=== PATIENT | male | born 1990 | race Caucasian/White ===

== ENCOUNTER 2017-11-07 12:25 | Emergency (ER) | payer MEDICAID ==
[2017-11-07] MEDS ORDERED: SODIUM CHLORIDE 0.9% 2,000 ML IV STA (12:42)
[2017-11-07] MEDS ORDERED: PANTOPRAZOLE 40 MG/10 ML VIAL IVP STA (12:42)
[2017-11-07] MEDS ORDERED: METOCLOPRAMIDE 5 MG/ML 2 ML VIAL IVP STA (12:42)
[2017-11-07] MEDS ORDERED: HYDROmorphone 1 MG/ML 1 ML SYRINGE IVP STA (12:43)
--- NOTE | 2017-11-07 12:47 | ED ---
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 No blood in the vomit. Temp 100.1.epigastric pain only - Related Data Home Medications Medication Instructions Recorded Confirmed Dextroamphetamine/Amphetamine 20 mg PO BID 11/07/17 11/07/17 [Adderall] Ondansetron [Zofran ODT] 4 mg PO ONCE PRN 11/07/17 11/07/17 Previous Rx's Medication Instructions Recorded Ciprofloxacin HCl [Cipro] 500 mg PO Q12HR #8 tablet 11/07/17 Ondansetron Odt [Zofran Odt] 4 mg PO Q8HR PRN #10 tab 11/07/17 Allergies Allergy/AdvReac Type Severity Reaction Status Date / Time No Known Allergies Allergy Verified 11/07/17 13:11 Review of Systems ROS Statement: Those systems with pertinent positive or pertinent negative responses have been documented in the HPI. review of systems. The patient felt well for several days vomiting for the past 6 hours. Temp 100.1. Epigastric discomfort. All systems are reviewed. Past medical problems seasonal asthma. No surgeries. Family history; Breast and brain cancer. Patient denies ALLERGIES denies smoking, denies alcohol use. ROS Other: All systems not noted in ROS Statement are negative. Past Medical History Past Medical History: No Reported History History of Any Multi-Drug Resistant Organisms: None Reported Past Surgical History: No Surgical Hx Reported Past Psychological History: No Psychological Hx Reported Smoking Status: Never smoker Past Alcohol Use History: Occasional Past Drug Use History: None Reported General Exam - General Exam Comments Initial Comments: General: The patient is awake and alert, mild to moderate distress because of epigastric discomfort and vomiting. Vital signs show temperature 100.1 pulse 133 respiratory rate 22 pulse ox on percent room air blood pressure 113/60 Eye: Pupils are equal, round and reactive to light, extra-ocular movements are intact ; there is normal conjunctiva bilaterally. No signs of icterus. Ears, nose, mouth and throat: mildly dry mucous membranes. Neck: The neck is supple, no neck pain. Cardiovascular: tachycardic heart rate, 1:30.. No murmur, rub or gallop is appreciated. Respiratory: Lungs are clear to auscultation, respirations are non-labored, breath sounds are equal. No wheezes, stridor, rales, or rhonchi. Gastrointestinal: epigastric discomfort with palpation. Lower abdomen benign. Active bowel sounds.Examination of the rectal area done with the assistance of nurse Monica. Finds significant excoriation all through the buttock area. This will need to be treated with a Mycostatin and a dressing to protect from moisture and further irritation. Rectal examination only to the depth of approximately the first phalangeal my index finger showed a very tight rectum. Stool guaiac negative. The patient did have bleeding afterwards. Possible fissure. The patient may be having difficulty with bowel movements because as she describes it her perirectal area mills for half hour after each bowel movement. Back: There is no tenderness to palpation in the midline. There is no obvious deformity. No rashes noted. Musculoskeletal: normal lower extremity movement. No complaint of pain or edema. Neurological: no complaint of, or evidence of, focal or lateralizing findings. Good balance. Skin: no skin rash Cooperative, appropriate mood & affect, normal judgment. 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 sugar 128. Total bilirubin 1.8. Influenza negative.amylase and lipase normal. X-ray of the abdomen was done and reviewed by radiologist his overall impression is; overall nonspecific but strongly favor nonobstructive bowel gas pattern. As read by Dr. cadena We discussed infectious gastroenteritis. Patient does not seem to have C. 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 - Lab Data Result diagrams: 11/07/17 12:51 11/07/17 12:51 Lab Results 01/06/18 01/06/18 01/06/18 Range/Units 12:51 12:51 12:55 WBC 9.9 (3.8-10.6) k/uL RBC 5.45 (4.30-5.90) m/uL Hgb 16.8 (13.0-17.5) gm/dL Hct 46.8 (39.0-53.0) % MCV 85.9 (80.0-100.0) fL MCH 30.9 (25.0-35.0) pg MCHC 36.0 (31.0-37.0) g/dL RDW 12.8 (11.5-15.5) % Plt Count 205 (150-450) k/uL Neutrophils % 89 % Lymphocytes % 4 % Monocytes % 5 % Eosinophils % 1 % Basophils % 0 % Neutrophils # 8.8 H (1.3-7.7) k/uL Lymphocytes # 0.4 L (1.0-4.8) k/uL Monocytes # 0.5 (0-1.0) k/uL Eosinophils # 0.1 (0-0.7) k/uL Basophils # 0.0 (0-0.2) k/uL Hyperchromasia Slight Sodium 142 (137-145) mmol/L Potassium 3.9 (3.5-5.1) mmol/L Chloride 98 (98-107) mmol/L Carbon Dioxide 27 (22-30) mmol/L Anion Gap 17 mmol/L BUN 21 H (9-20) mg/dL Creatinine 0.97 (0.66-1.25) mg/dL Est GFR (MDRD) Af Amer >60 (>60 ml/min/1.73 sqM) Est GFR (MDRD) Non-Af >60 (>60 ml/min/1.73 sqM) Glucose 128 H (74-99) mg/dL Calcium 10.6 H (8.4-10.2) mg/dL Total Bilirubin 1.8 H (0.2-1.3) mg/dL AST 25 (17-59) U/L ALT 38 (21-72) U/L Alkaline Phosphatase 65 (38-126) U/L Total Protein 8.3 H (6.3-8.2) g/dL Albumin 5.3 H (3.5-5.0) g/dL Amylase 69 (30-110) U/L Lipase 36 (23-300) U/L Influenza Type A RNA Not Detected (Not Detectd) Influenza Type B (PCR) Not Detected (Not Detectd) Disposition Clinical Impression: Gastroenteritis Disposition: HOME SELF-CARE Condition: Fair Instructions: Acute Nausea and Vomiting (ED), Acute Diarrhea (ED), Gastroenteritis (ED) Additional Instructions: Eventually fluids, take Cipro 500 twice a day for 4 days. Prescriptions: Ciprofloxacin HCl [Cipro] 500 mg PO Q12HR #8 tablet Ondansetron Odt [Zofran Odt] 4 mg PO Q8HR PRN #10 tab PRN Reason: Nausea Referrals: None,Stated [REFERRING] - 1-2 days Time of Disposition: 15:53
[2017-11-07 13:01] LABS: Basophils % (A) 0 %; Eosinophils # (A) 0.1 k/uL (0-0.7); Eosinophils % (A) 1 %; HCT 46.8 % (39.0-53.0); HGB 16.8 gm/dL (13.0-17.5); Hyperchromasia Slight; Lymphocytes # (A) 0.4 k/uL (1.0-4.8); Lymphocytes % (A) 4 %; MCH 30.9 pg (25.0-35.0); MCV 85.9 fL (80.0-100.0); Mean Platelet Volume 6.7; Monocytes # (A) 0.5 k/uL (0-1.0); Monocytes % (A) 5 %; Neutrophils # (A) 8.8 k/uL (1.3-7.7); Neutrophils % (A) 89 %; Platelet Count 205 k/uL (150-450); RBC 5.45 m/uL (4.30-5.90); RDW 12.8 % (11.5-15.5); WBC 9.9 k/uL (3.8-10.6)
[2017-11-07 13:14] LABS: ALT 38 U/L (21-72); AST 25 U/L (17-59); Albumin 5.3 g/dL (3.5-5.0); Alkaline Phosphatase 65 U/L (38-126); Amylase 69 U/L (30-110); Anion Gap 17 mmol/L; Blood Urea Nitrogen 21 mg/dL (9-20); Calcium 10.6 mg/dL (8.4-10.2); Carbon Dioxide 27 mmol/L (22-30); Chloride 98 mmol/L (98-107); Glucose 128 mg/dL (74-99); Lipase 36 U/L (23-300); Potassium 3.9 mmol/L (3.5-5.1); Sodium 142 mmol/L (137-145); Total Bilirubin 1.8 mg/dL (0.2-1.3); Total Protein 8.3 g/dL (6.3-8.2)
[2017-11-07] MEDS ORDERED: ACETAMINOPHEN IV (For NPO) 1,000 MG in EMPTY BAG 1 BAG IVPB STA (13:44)
[2017-11-07 15:21] VITALS: BP 107/51; PULSE 105; RESP 17
--- NOTE | 2017-11-07 15:35 | XR ---
EXAMINATION TYPE: XR abdomen 2V DATE OF EXAM: 11/07/2017 CLINICAL HISTORY: Epigastric pain TECHNIQUE: Supine and upright views of the abdomen are obtained. COMPARISON: None. FINDINGS: Scattered gas is seen in non-distended stomach and small bowel loops. Gas is seen in non-d istended colon. Few scattered air-fluid levels are seen, nonspecific finding. There is no visceromeg jose martin, pneumoperitoneum, or abnormal calcification appreciated. The lung bases are clear and the osse ous structures are intact. IMPRESSION: Overall nonspecific but strongly favor nonobstructive bowel gas pattern.
[2017-11-07 16:16] VITALS: TEMP 98.7
== END 2017-11-07 16:15 | disposition home or self-care (01) ==
LOC: EC 12:25
DX: K52.9 Noninfective gastroenteritis and colitis, unspecified (principal); S30.810A Abrasion of lower back and pelvis, initial encounter; R00.0 Tachycardia, unspecified; Z79.899 Other long term (current) drug therapy; Z53.20 Procedure and treatment not carried out because of patient's decision for unspecified reasons; X58.XXXA Exposure to other specified factors, initial encounter
CPT/HCPCS: 36415; 80053; 82150; 83690; 85025; 87502; 74019; 99284; 96374; 96375 ×2; 96361 ×3; J2765; J0131; C9113

== ENCOUNTER → 2020-03-22 | Outpatient (CLI) | payer MEDICAID | END | disposition home or self-care (01) | LOC: LABWHC1 07:22 | PROVIDERS: ATTEND Pediatrics Pediatric Infectious Diseases | DX: Z11.59 Encounter for screening for other viral diseases (principal) | CPT/HCPCS: 87635 ==

== ENCOUNTER → 2022-09-29 | Outpatient (CLI) | payer BC ==
--- NOTE | 2022-09-30 07:24 | XR ---
EXAMINATION TYPE: XR lumbosacral spine min 4V DATE OF EXAM: 09/29/2022 COMPARISON: None HISTORY: Sciatica and low back pain TECHNIQUE: 5 view lumbar spine FINDINGS: There are 5 lumbar-type vertebral bodies. Pedicles are intact. Disc heights are preserved. Vertebral body heights are preserved. No spondylolytic defects are evident. Facets appear normal. Ali gnment is unremarkable. IMPRESSION: 1. No acute osseous abnormality lumbar spine. 2. MRI can be performed for soft tissue evaluation.
== END | disposition home or self-care (01) ==
LOC: RADXRYALE 16:07
PROVIDERS: ATTEND Physician Assistant
DX: M54.50 Low back pain, unspecified (principal); M54.32 Sciatica, left side
CPT/HCPCS: 72110

== ENCOUNTER 2022-11-02 12:19 | Emergency (ER) | payer BC ==
[2022-11-02 12:24] VITALS: TEMP 98.8
--- NOTE | 2022-11-02 13:08 | ED ---
Back Pain HPI - General Chief Complaint: Back Pain/Injury Stated Complaint: back & hip pain Time Seen by Provider: 11/02/22 12:26 Source: patient, RN notes reviewed Limitations: no limitations - History of Present Illness Initial Comments: 32-year-old male presents emergency Department chief complaint of low back pain, left leg pain. Patient states he's been dealing with this last couple months states is progressively getting worse. Patient states he feels like it's getting her on his left leg. He states that increasing pain rates on his left leg on the backside into his foot. Denies any trauma no prior injuries she's never suffered back issues (the last few months. Patient states that he seen his primary care physician has been on multiple rounds of steroids. Patient states that last Thursday symptoms worsen. Patient denies any bowel, bladder incontinence or retention and leg paresthesias states she's had some lower extremity paresthesias. Patient states that he's been evaluated by physical therapist but was told he cannot doing at the time today further imaging. - Related Data Home Medications Medication Instructions Recorded Confirmed Dextroamphetamine/Amphetamine 20 mg PO BID 11/07/17 11/07/17 [Adderall] Ondansetron [Zofran ODT] 4 mg PO ONCE PRN 11/07/17 11/07/17 Previous Rx's Medication Instructions Recorded Ciprofloxacin HCl [Cipro] 500 mg PO Q12HR #8 tablet 11/07/17 Ondansetron Odt [Zofran Odt] 4 mg PO Q8HR PRN #10 tab 11/07/17 Cyclobenzaprine [Flexeril] 10 mg PO TID PRN #15 tab 11/02/22 Ibuprofen [Motrin] 600 mg PO Q8HR PRN #20 tab 11/02/22 Allergies Allergy/AdvReac Type Severity Reaction Status Date / Time No Known Allergies Allergy Verified 11/02/22 12:22 Review of Systems ROS Statement: Those systems with pertinent positive or pertinent negative responses have been documented in the HPI. ROS Other: All systems not noted in ROS Statement are negative. Past Medical History Past Medical History: No Reported History History of Any Multi-Drug Resistant Organisms: None Reported Past Surgical History: No Surgical Hx Reported Past Psychological History: No Psychological Hx Reported Past Alcohol Use History: Occasional Past Drug Use History: None Reported General Exam Limitations: no limitations General appearance: alert, in no apparent distress Head exam: Present: atraumatic, normocephalic, normal inspection Eye exam: Present: normal appearance, PERRL, EOMI. Absent: scleral icterus, conjunctival injection, periorbital swelling Neck exam: Present: normal inspection, full ROM. Absent: tenderness, meningismus, lymphadenopathy Respiratory exam: Present: normal lung sounds bilaterally. Absent: respiratory distress, wheezes, rales, rhonchi, stridor Cardiovascular Exam: Present: regular rate, normal rhythm, normal heart sounds. Absent: systolic murmur, diastolic murmur, rubs, gallop, clicks GI/Abdominal exam: Present: soft, normal bowel sounds. Absent: distended, tenderness, guarding, rebound, rigid Extremities exam: Present: other (Lower extremity pulses equal bilaterally, neurovascular intact, equal clinical warmth) Back exam: Present: full ROM (Pain with range of motion), tenderness, paraspinal tenderness, vertebral tenderness (SI tenderness left) Neurological exam: Present: reflexes normal. Absent: motor sensory deficit Skin exam: Present: warm, dry, intact, normal color. Absent: rash Course Vital Signs 11/02/22 12:20 Temperature 98.8 F Pulse Rate 107 H Respiratory 19 Rate Blood Pressure 143/83 O2 Sat by Pulse 97 Oximetry Medical Decision Making - Medical Decision Making Was pt. sent in by a medical professional or institution? @ -no Did you speak to anyone other than the patient for history? @ -no Did you review nursing and triage notes? @ -agree and reviewed Were old charts reviewed? @ -no Differential Diagnosis? @ -Sciatica, herniated disc bulging disks, lumbar compression fracture, lumbar strain, this list is not all inclusive. EKG interpreted by me (3pts min.)? @ -no X-rays interpreted by me (1pt min.)? @ -no CT interpreted by me (1pt min.)? @ -CT of lumbar spine shows no acute process. As interpreted by me U/S interpreted by me (1pt. min.)? @ -nno What testing was considered but not performed? (CT, X-rays, U/S, labs)? Why? @ MRI lumbar spine though unable to obtain emergency department and patient has no red flag symptoms will follow-up for MRI What meds were considered but not given? Why? @ -Anti-inflammatories, narcotic pain meds patient declines Did you discuss the management of the patient with other professionals? @ -no Did you reconcile home meds? @ -no Was smoking cessation discussed for >3mins.? @ -no Was critical care preformed (if so, how long)? @ -no Were there social determinants of health that impacted care today? How? (Homelessness, low income, unemployed, alcoholism, drug addiction, tra nsportation, low edu. Level, literacy, decrease access to med. care, snf, rehab)? @ -no Was there de-escalation of care discussed even if they declined? (Discuss DNR or withdrawal of care, Hospice)? @ -no What co-morbidities impacted this encounter? (DM, HTN, Smoking, COPD, CAD, Cancer, CVA, Hep., AIDS, mental health diagnosis, sleep apnea, morbid obesity)? @ -no Was patient admitted / discharged? @ -discharged Undiagnosed new problem with uncertain prognosis? @ -no Drug Therapy requiring intensive monitoring for toxicity (Heparin, Nitro, Insulin, Cardizem)? @ -no Were any procedures done? @ -no Diagnosis/symptom? @ -Sacroiliitis, sciatica Acute, or Chronic, or Acute on Chronic? @ -acute on chronic Uncomplicated (without systemic symptoms) or Complicated (systemic symptoms)? @ -Uncomplicated Side effects of treatment? @ -no Exacerbation, Progression, or Severe Exacerbation] @ -no Poses a threat to life or bodily function? @ -no 32-year-old male presented for increasing lumbar back pain CT is obtained as patient had prior x-ray. CT does not reveal any acute findings. Patient does not recur symptoms on his left leg but this may be caused by sacroiliitis. Patient does have tenderness over this region. Patient will follow-up with orthopedics. Patient's been multiple courses steroids with no relief of symptoms. Disposition Clinical Impression: Lumbar radiculopathy, Sacroiliitis Disposition: HOME SELF-CARE Instructions (If sedation given, give patient instructions): Lumbar Radiculopathy (ED) Additional Instructions: Please return to the Emergency Department if symptoms worsen or any other concerns. Prescriptions: Cyclobenzaprine [Flexeril] 10 mg PO TID PRN #15 tab PRN Reason: Muscle Spasm Ibuprofen [Motrin] 600 mg PO Q8HR PRN #20 tab PRN Reason: Pain Is patient prescribed a controlled substance at d/c from ED?: No Referrals: Ld Phillips DO [Primary Care Provider] - 1-2 days Matthew Horner DO [Doctor of Osteopathic Medicine] - 1-2 days [facility] [NON-STAFF] - 1-2 days Time of Disposition: 13:33
--- NOTE | 2022-11-02 13:22 | CT ---
EXAMINATION TYPE: CT lumbar spine wo con CT DLP: 727.7 mGycm, Automated exposure control for dose reduction was used. DATE OF EXAM: 11/02/2022 1:13 PM COMPARISON: Radiograph 09/21/2022 CLINICAL INDICATION:Male, 32 years old with history of left leg pain, back pain; PHH, Lt hip pain, ba ck pain, no injury TECHNIQUE: Multiple axial images were obtained from the midportion of T11 through the sacroiliac seema nts. Soft tissue and bone windows in coronal and sagittal planes were obtained and reviewed. Contrast used: none. Oral contrast used: none. FINDINGS: Alignment: There are 5 lumbar type vertebral bodies within normal alignment. Bone: No evidence of fracture is identified. Discs: T12-L1: No spinal canal or neural foraminal stenosis is identified. L1-L2: No spinal canal or neural foraminal stenosis is identified. L2-L3: No spinal canal or neural foraminal stenosis is identified. L3-L4: No spinal canal or neural foraminal stenosis is identified. L4-L5: No spinal canal or neural foraminal stenosis is identified. L5-S1: No spinal canal or neural foraminal stenosis is identified. Other: None IMPRESSION: No evidence of fracture of the lumbar spine.
[2022-11-02 13:52] VITALS: BP 132/73; PULSE 94; RESP 16
== END 2022-11-02 13:52 | disposition home or self-care (01) ==
LOC: EC 12:19
DX: M54.16 Radiculopathy, lumbar region (principal); M46.1 Sacroiliitis, not elsewhere classified
CPT/HCPCS: 72131; 99283